=== PATIENT | female | born 1985 | race Caucasian/White ===

== ENCOUNTER → 2017-02-13 | Outpatient (CLI) | payer OTHER | END | disposition disaster alternative care site (69) | LOC: GOPP 15:30 | DX: E01.0 Iodine-deficiency related diffuse (endemic) goiter (principal); R30.0 Dysuria | CPT/HCPCS: J7030 ==

== ENCOUNTER → 2017-02-14 | Outpatient (CLI) | payer OTHER | END | disposition disaster alternative care site (69) | LOC: GRAD 11:21 | DX: E01.0 Iodine-deficiency related diffuse (endemic) goiter (principal) ==

== ENCOUNTER → 2017-04-10 | Outpatient (CLI) | payer OTHER | END | disposition disaster alternative care site (69) | LOC: GPOC 04-09 15:00 | PROC: 0G9H3ZX Drainage of Right Thyroid Gland Lobe, Percutaneous Approach, Diagnostic (ICD-10-PCS; principal; 2017-04-10) | DX: E04.2 Nontoxic multinodular goiter (principal) ==